=== PATIENT | female | born 1975 | race Two or more races ===

== ENCOUNTER 2020-11-18 10:40 | Emergency (ER) | payer OTHER ==
[~2020-11-18] VITALS: Ht 157.5 cm; Wt 86.0 kg
[2020-11-18 10:46] VITALS: BP 173/85
--- NOTE | 2020-11-18 11:18 | NUR ---
PT AMBULATED TO ROOM FROM TRIAGE WITH UPRIGHT STEADY GAIT. PT CHANGED INTO GOWN, MONITORS IN PLACE. CALL LIGHT WITHIN REACH
--- NOTE | 2020-11-18 11:40 | NUR ---
Patient given discharge instructions and they have confirmed that they understand the instructions. Patient ambulatory with steady gait.
[2020-11-18 11:55] LABS: RAPID INFLUENZA A Negative (Negative); RAPID INFLUENZA B Negative (Negative)
== END 2020-11-18 11:42 | disposition home or self-care (01) ==
LOC: ED 11:36
DX: U07.1 COVID-19 (principal); B34.9 Viral infection, unspecified; R19.7 Diarrhea, unspecified; J02.9 Acute pharyngitis, unspecified; R50.9 Fever, unspecified; M79.10 Myalgia, unspecified site; R51.9 Headache, unspecified
CPT/HCPCS: 87400; 99283; U0003